=== PATIENT | male | born 1960 | race African-American/Black ===

== ENCOUNTER 2016-11-05 14:19 | Inpatient (IN) | payer OTHER ==
[2016-11-05 14:37] VITALS: BMI 18.0
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
[2016-11-05] MEDS ORDERED: diphenhydrAMINE HCL 50 MG CAPSULE PO PRN (16:16)
[2016-11-05] MEDS ORDERED: guaiFENesin/D-METHORPHAN HB 10 ML UNIT-DOSE CUPS PO PRN (16:16)
[2016-11-05] MEDS ORDERED: IBUPROFEN 400 MG TABLET (FP) PO PRN (16:16)
[2016-11-05] MEDS ORDERED: chlordiazePOXIDE HCL 25 MG CAPSULE PO ONE (16:16)
[2016-11-05] MEDS ORDERED: ACETAMINOPHEN 325 MG TABLET (FP) PO PRN (16:16)
[2016-11-05] MEDS ORDERED: MAGNESIUM CITRATE 300 ML BOTTLE PO PRN (16:16)
[2016-11-05] MEDS ORDERED: MENTHOL/PHENOL 1 EACH UD MM PRN (16:16)
[2016-11-05] MEDS ORDERED: MAGNESIUM HYDROX 2400MG/30ML ORAL SUSPENSION 30 ML CUP PO PRN (16:16)
[2016-11-05] MEDS ORDERED: LOPERAMIDE HCL 2 MG CAPSULE PO PRN (16:16)
[2016-11-05] MEDS ORDERED: hydrOXYzine PAMOATE 25 MG CAPSULE (FP) PO PRN (16:16)
[2016-11-05] MEDS ORDERED: MAG HYDROX/AL HYDROX/SIMETH 30 ML UNIT-DOSE CUP PO PRN (16:16)
[2016-11-05] MEDS: chlordiazePOXIDE HCL 25 MG CAPSULE PO PRN (16:45)
[2016-11-05] MEDS: chlordiazePOXIDE HCL 25 MG CAPSULE PO SCH ×2 (17:55→22:40)
[2016-11-05] MEDS: THIAMINE HCL 100 MG TABLET (FP) PO SCH (22:40)
[2016-11-06] MEDS: chlordiazePOXIDE HCL 25 MG CAPSULE PO SCH ×4 (06:29→22:06)
[2016-11-06] MEDS ORDERED: IBUPROFEN 400 MG TABLET (FP) PO PRN (10:39)
--- NOTE | 2016-11-06 10:39 | PN ---
S CIWA - CIWA Score Nausea/Vomitin-No Nausea/No Vomiting Muscle Tremors: 4-Moderate,w/Arms Extend Anxiety: 3 Agitation: 4-Moderately Restless Paroxysmal Sweats: 3 Orientation: 0-Oriented Tacttile Disturbances: 0-None Auditory Disturbances: 0-None Visual Disturbances: 0-None Headache: 1-Very Mild CIWA-Ar Total Score: 15 [facility] Progress Note (SOAP) Subjective: shakes sweats interrupted sleep agitation anxiety shoulder pain Objective: 11/06/16 10:38 Vital Signs Temperature 98.1 F 11/06/16 10:12 Pulse Rate 91 H 11/06/16 10:12 Respiratory Rate 20 11/06/16 10:12 Blood Pressure 159/93 11/06/16 10:12 O2 Sat by Pulse Oximetry (%) labs pending awake/alert ambulating no acute distress Assessment: 11/06/16 10:38 withdrawal sx Plan: continue detox increase fluids motrin 800mg prn analgesic balm
[2016-11-06 10:46] LABS: MCHC 32.1 g/dl (32.0-35.9); MEAN CELL VOLUME 87.2 fl (80-96); MEAN PLT VOLUME 8.3 fl (7.5-11.1); PLATELET COUNT 304 K/MM3 (134-434); RDW 16.5 % (11.9-15.9); WHITE BLOOD COUNT 5.2 K/mm3 (4.0-10.0)
[2016-11-06] MEDS: PRENATAL VITAMINS W/ FOLIC ACID TABLET (FP) PO SCH (11:01)
[2016-11-06 11:07] LABS: ALBUMIN 3.5 g/dl (3.4-5.0); ALK PHOS 102 U/L (45-117); ANION GAP 9 (8-16); BILIRUBIN,TOTAL 0.3 mg/dL (0.2-1.0); CALCIUM 9.1 mg/dL (8.5-10.1); CO2 31 mmol/L (21-32); CREATININE 1.2 mg/dL (0.7-1.3); GLUCOSE,RANDOM 83 mg/dL (74-106); SGOT/AST 15 U/L (15-37); SGPT/ALT 21 U/L (12-78); TOT PROT 6.9 g/dl (6.4-8.2)
--- NOTE | 2016-11-06 11:28 | EKG ---
Test Reason : Blood Pressure : / mmHG Vent. Rate : 094 BPM Atrial Rate : 094 BPM P-R Int : 146 ms QRS Dur : 086 ms QT Int : 400 ms P-R-T Axes : 089 085 091 degrees QTc Int : 500 ms NORMAL SINUS RHYTHM POSSIBLE LEFT ATRIAL ENLARGEMENT LEFT VENTRICULAR HYPERTROPHY CANNOT RULE OUT SEPTAL INFARCT , AGE UNDETERMINED PROLONGED QT ABNORMAL ECG NO PREVIOUS ECGS AVAILABLE Confirmed by MANUELA BAIRES MD ([id number]) on 11/06/2016 11:27:25 AM Referred By: Confirmed By:MANUELA BAIRES MD
[2016-11-06] MEDS: METHYL SALICYLATE/MENTHOL OINT 30 GM TUBE TP SCH ×2 (14:14→22:07)
[2016-11-06 14:28] LABS: URINE APPEARANCE CLEAR; URINE BILIRUBIN NEGATIVE (NEGATIVE); URINE BLOOD NEGATIVE (NEGATIVE); URINE COLOR YELLOW; URINE GLUCOSE (UA) NEGATIVE (NEGATIVE); URINE KETONE NEGATIVE (NEGATIVE); URINE LEUK ESTERASE NEGATIVE (NEGATIVE); URINE NITRITE NEGATIVE (NEGATIVE); URINE PROTEIN NEGATIVE (NEGATIVE); URINE UROBILINOGEN NEGATIVE E.U./dl (0.2-1.0)
--- NOTE | 2016-11-06 17:39 | PN ---
S Progress Note Note: RECEIVED NURSE CALL PATIENT HAS DEPRESSION AND REQUESTS TO SEE A PSYCHIATRIST PSYCHIATRY CONSULTATION REFERRED CONTINUE DETOX
[2016-11-06] MEDS: THIAMINE HCL 100 MG TABLET (FP) PO SCH (22:05)
[2016-11-06] MEDS: P-EPHED 60MG/TRIPROLIDI 2.5MG TABLET PO PRN (22:06)
[2016-11-07] MEDS: chlordiazePOXIDE HCL 25 MG CAPSULE PO SCH ×2 (06:04→10:11)
[2016-11-07] MEDS ORDERED: cloNIDine HCL 0.1 MG TABLET PO ONE (09:14)
[2016-11-07] MEDS: PRENATAL VITAMINS W/ FOLIC ACID TABLET (FP) PO SCH (10:11)
[2016-11-07] MEDS: NAPROXEN 500 MG TABLET (FP) PO SCH ×2 (10:11→22:47)
[2016-11-07] MEDS: METHYL SALICYLATE/MENTHOL OINT 30 GM TUBE TP SCH ×2 (11:09→22:47)
--- NOTE | 2016-11-07 12:34 | PN ---
[facility] CIWA - CIWA Score Nausea/Vomitin Muscle Tremors: 2 Anxiety: 3 Agitation: 3 Paroxysmal Sweats: 3 Orientation: 0-Oriented Tacttile Disturbances: 2-Mild Itch/Numbness/Burn Auditory Disturbances: 0-None Visual Disturbances: 0-None Headache: 0-None Present CIWA-Ar Total Score: 15 [facility] Progress Note (SOAP) Subjective: interrupted sleep, sweats , left shoulder pain Objective: 11/07/16 12:31 Last Vital Signs Temp Pulse Resp BP Pulse Ox 97.3 F L 93 H 18 153/105 11/07/16 09:57 11/07/16 09:57 11/07/16 09:57 11/07/16 09:57 Laboratory Tests 11/05/16 11/06/16 11/06/16 07:00 07:00 07:00 WBC 5.2 RBC 3.94 L Hgb 11.0 L Hct 34.3 L MCV 87.2 MCHC 32.1 RDW 16.5 H Plt Count 304 MPV 8.3 Sodium 141 Potassium 4.3 Chloride 101 Carbon Dioxide 31 Anion Gap 9 BUN 20 H Creatinine 1.2 Creat Clearance w eGFR > 60 Random Glucose 83 Calcium 9.1 Total Bilirubin 0.3 AST 15 ALT 21 Alkaline Phosphatase 102 Total Protein 6.9 Albumin 3.5 Urine Color Urine Appearance Urine pH Ur Specific [place] Urine Protein Urine Glucose (UA) Urine Ketones Urine Blood Urine Nitrite Urine Bilirubin Urine Urobilinogen Ur Leukocyte Esterase RPR Titer Hepatitis C Antibody 0.4 11/06/16 11/06/16 07:00 10:30 WBC RBC Hgb Hct MCV MCHC RDW Plt Count MPV Sodium Potassium Chloride Carbon Dioxide Anion Gap BUN Creatinine Creat Clearance w eGFR Random Glucose Calcium Total Bilirubin AST ALT Alkaline Phosphatase Total Protein Albumin Urine Color Yellow Urine Appearance Clear Urine pH 5.0 Ur Specific [place] 1.028 Urine Protein Negative Urine Glucose (UA) Negative Urine Ketones Negative Urine Blood Negative Urine Nitrite Negative Urine Bilirubin Negative Urine Urobilinogen Negative Ur Leukocyte Esterase Negative RPR Titer Nonreactive Hepatitis C Antibody pt aox3 lying in bed grimacing at time Assessment: 11/07/16 12:32 withdrawl sx's left shoulder pain insomnia - wants trazadone Plan: cont. detox increase fluids pysch eval motrin analesic balm -pt refused lidocaine patch
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
[2016-11-07] MEDS: chlordiazePOXIDE 5 MG CAPSULE PO SCH ×2 (17:36→22:46)
[2016-11-07] MEDS: THIAMINE HCL 100 MG TABLET (FP) PO SCH (22:47)
[2016-11-07] MEDS: traZODone HCL 100 MG TABLET (FP) PO SCH (22:47)
[2016-11-07] MEDS: P-EPHED 60MG/TRIPROLIDI 2.5MG TABLET PO PRN (22:49)
[2016-11-08] MEDS: chlordiazePOXIDE 5 MG CAPSULE PO SCH ×2 (06:41→10:50)
[2016-11-08] MEDS: METHYL SALICYLATE/MENTHOL OINT 30 GM TUBE TP SCH ×2 (10:49→22:45)
[2016-11-08] MEDS: NAPROXEN 500 MG TABLET (FP) PO SCH ×2 (10:50→22:43)
[2016-11-08] MEDS: PRENATAL VITAMINS W/ FOLIC ACID TABLET (FP) PO SCH (10:50)
--- NOTE | 2016-11-08 10:58 | PN ---
[facility] Progress Note (SOAP) Subjective: chronic body aches sweats Objective: 11/08/16 10:57 Vital Signs Temperature 96.4 F L 11/08/16 10:13 Pulse Rate 105 H 11/08/16 10:13 Respiratory Rate 20 11/08/16 10:13 Blood Pressure 145/86 11/08/16 10:13 O2 Sat by Pulse Oximetry (%) awake/alert ambulating no acute distress Assessment: 11/08/16 10:58 withdrawal sx Plan: continue detox increase fluids d/c in am
[2016-11-08] MEDS: chlordiazePOXIDE HCL 25 MG CAPSULE PO PRN (14:50)
[2016-11-08] MEDS: chlordiazePOXIDE HCL 10 MG CAPSULE PO SCH ×2 (18:26→22:43)
[2016-11-08] MEDS: THIAMINE HCL 100 MG TABLET (FP) PO SCH (22:43)
[2016-11-08] MEDS: traZODone HCL 100 MG TABLET (FP) PO SCH (22:43)
[2016-11-09] MEDS: chlordiazePOXIDE HCL 10 MG CAPSULE PO SCH ×2 (05:45→11:28)
[2016-11-09 07:04] VITALS: BP 128/69; PULSE 82; TEMP 97.1
--- NOTE | 2016-11-09 08:17 | PN ---
S Progress Note (SOAP) Subjective: ALERT,IRRITABLE,ANXIOUS,INTERRUPTED SLEEP Objective: 11/09/16 08:15 Vital Signs Temperature 97.1 F L 11/09/16 07:03 Pulse Rate 82 11/09/16 07:03 Respiratory Rate 18 11/09/16 07:03 Blood Pressure 128/69 11/09/16 07:03 O2 Sat by Pulse Oximetry (%) Assessment: 11/09/16 08:15 DETOX COMPLETED,NO WITHDRAWAL SYMPTOM Plan: DISCHARGE TODAY,FOLLOW UP WITH AFTER CARE PROGRAM ARRANGEMENT
--- NOTE | 2016-11-09 08:20 | DS ---
[facility] Detox Discharge Summary Admission Date: 11/05/16 Discharge Date: 11/09/16 - History Present History: Alcohol Dependence, Cocaine Dependence Additional Comments: FOLLOW UP WITH AFTER CARE PROGRAM ARRANGEMENT Pertinent Past History: DEFORMITY OF LEFT HAND NICOTINE DEPENDENCE - Physical Exam Results Vital Signs: Vital Signs Temperature 97.1 F L 11/09/16 07:03 Pulse Rate 82 11/09/16 07:03 Respiratory Rate 18 11/09/16 07:03 Blood Pressure 128/69 11/09/16 07:03 O2 Sat by Pulse Oximetry (%) Pertinent Admission Physical Exam Findings: WITHDRAWAL SYMPTOM - Treatment Hospital Course: Detox Protocol Followed, Detoxed Safely, Responded well, Discharged Condition Good Patient has Accepted a Rehab Referral to: DECLINED - Medication Discharge Medications: Ambulatory Orders Trazodone HCl [Desyrel -] 200 mg PO HS 11/05/16 Trazodone HCl 100 mg PO HS #30 tablet 11/07/16 - Diagnosis (1) Alcohol dependence with uncomplicated withdrawal Current Visit: Yes Status: Acute (2) Cocaine dependence Current Visit: Yes Status: Acute (3) Weight loss Current Visit: Yes Status: Acute (4) Nicotine dependence Current Visit: Yes Status: Acute (5) Acquired deformity of left hand Current Visit: Yes Status: Chronic - AMA Did Patient Leave Against Medical Advice: No
[2016-11-09] MEDS: PRENATAL VITAMINS W/ FOLIC ACID TABLET (FP) PO SCH (11:27)
[2016-11-09] MEDS: NAPROXEN 500 MG TABLET (FP) PO SCH (11:27)
[2016-11-09] MEDS: METHYL SALICYLATE/MENTHOL OINT 30 GM TUBE TP SCH (11:28)
== END 2016-11-09 11:40 | disposition home or self-care (01) | DRG 774 ==
LOC: YASAS 14:19 → Y6N 15:55
PROVIDERS: ADMIT Internal Medicine; ATTEND Internal Medicine Addiction Medicine
PROC: HZ2ZZZZ Detoxification Services for Substance Abuse Treatment (ICD-10-PCS; principal; 2016-11-09)
DX: F10.230 Alcohol dependence with withdrawal, uncomplicated (principal); F14.20 Cocaine dependence, uncomplicated; F17.210 Nicotine dependence, cigarettes, uncomplicated; M21.832 Other specified acquired deformities of left forearm; R63.4 Abnormal weight loss; Z68.1 Body mass index [BMI] 19.9 or less, adult; Z59.0 Homelessness
CPT/HCPCS: 36415; 80053; 81003; 85027; 86593; 87522; 93005; 93010